=== PATIENT | female | born 1930 | race Caucasian/White ===

== ENCOUNTER 2016-09-08 07:31 | Inpatient (IN) | payer OTHER ==
[~2016-09-08] VITALS: Ht 170.2 cm; Wt 73.3 kg
[2016-09-08] VITALS (19 sets, daily range): BP systolic 150–182; BP diastolic 54–83
[~2016-09-08 07:31] MED LIST: ASPIRIN81 M2 PO; ATROVENT 0.03%30 ML BOTH NARES; CELEXA20 MG PO; CYANOCOBALAM1000 MCG PO; DIABETA5 MG PO; GLIPIZIDE10 MG PO; LASIX40 MG PO; LIPITOR40 MG PO; LIPITOR80 MG PO; LOPRESSOR25 MG PO; NITROSTAT0.4 MG SL; NORVASC5 MG PO; PREVACID15 MG PO; PRILOSEC20 MG PO; SYNTHROID125 MCG PO; TYLENOL EXTRA500 MG PO; VITAMIN B-1250 MC3 PO
[2016-09-08 08:05] LABS: EOSINOPHIL COUNT 0.6 K/uL (0-0.3); HEMATOCRIT 23.2 % (36.0-46.0); IMMATURE GRANULOCYTE (%) 0.1 % (0.0-0.7); IMMATURE GRANULOCYTE COUNT 0.1 K/uL; MCH 21.2 PG (29.0-34.0); MCHC 28.4 G/DL (30.0-36.0); MCV 74.4 FL (83-99); MEAN PLAT.VOLUME 9.2 uM^3 (9.5-12.4); MONOCYTE (%) 8.8 % (3-12); MONOCYTE COUNT 0.7 K/uL (0-0.8); NEUTROPHIL (%) 71.8 % (45-76); NEUTROPHIL COUNT 5.9 K/uL (1.8-6.4); PLATELET COUNT 403 K/uL (156-360); RBC DIS.WIDTH-CV 16.8 % (11.8-14.6); RBC DIS.WIDTH-SD 43.3 % (39-53); RED BLOOD COUNT 3.12 M/uL (3.80-5.20); WHITE BLOOD COUNT 8.2 K/uL (4.1-10.2)
[2016-09-08 08:12] LABS: POINT-OF-CARE METER ID UU13113702
[2016-09-08 08:40] LABS: ANION GAP 10 MEQ/L (2-14); CHLORIDE 108 MEQ/L (99-109); POTASSIUM 4.3 MEQ/L (3.7-5.4); SAMPLE HEMOLYSIS CHECK 0; SAMPLE ICTERIC CHECK 0; SAMPLE LIPEMIA CHECK 0; SODIUM 144 MEQ/L (136-147); TOTAL BILIRUBIN 0.2 MG/DL (0.0-1.0)
[2016-09-08 08:57] LABS: ALKALINE PHOSPHATASE 63 IU/L (3-129); GFR ESTIMATE (CALCULATED) 41 mL/min/; UREA NITROGEN (BUN) 36 mg/dL (9-23)
[2016-09-08 08:58] LABS: GLUCOSE 29 mg/dL (70-99)
[2016-09-08] MEDS ORDERED: LIPITOR40 MG PO (08:59)
[2016-09-08] MEDS ORDERED: SYNTHROID150 MCG PO (09:02)
[2016-09-08] MEDS ORDERED: VITAMIN D-3 401 EACH PO (09:03)
[2016-09-08] MEDS ORDERED: ARTIFICIAL TEAR15 M1 RIGHT EYE (09:04)
[2016-09-08 09:09] LABS: HEMATOCRIT 22.9 % (36.0-46.0); MCH 20.8 PG (29.0-34.0); MCHC 27.9 G/DL (30.0-36.0); MCV 74.6 FL (83-99); MEAN PLAT.VOLUME 8.9 uM^3 (9.5-12.4); PLATELET COUNT 390 K/uL (156-360); RBC DIS.WIDTH-CV 16.8 % (11.8-14.6); RBC DIS.WIDTH-SD 43.9 % (39-53); RED BLOOD COUNT 3.07 M/uL (3.80-5.20)
[2016-09-08] MEDS ORDERED: LIPITOR80 MG PO (09:37)
[2016-09-08 09:52] LABS: ABSOLUTE RETICULOCYTE CT. 0.02 M/uL (0.02-0.08); IMM.RETIC FRACTION 9.6 % (3-19); RETICULOCYTE COUNT 0.7 % (0.5-1.8)
[2016-09-08 10:16] LABS: POINT-OF-CARE METER ID UU13113702
[2016-09-08 10:21] LABS: IRON 11 MCG/DL (35-150)
[2016-09-08 10:40] LABS: ADD MIUA? YES; BILIRUBIN NEGATIVE; BLOOD NEGATIVE; COLOR YELLOW ((YELLOW)); GLUCOSE (STRIP) NEGATIVE; KETONES NEGATIVE; LEUKOCYTES NEGATIVE; NITRITE NEGATIVE; PH, URINE 5.5 (5-8); PROTEIN (STRIP) 100; SPECIFIC GRAVITY 1.015 (1.000-1.030); UROBILINOGEN 0.2 MG/DL (0.2-1.0)
[2016-09-08 10:52] LABS: BACTERIA 3+ /HPF; EPITHELIAL CELLS RARE /HPF; MUCUS NONE SEEN /LPF; RED BLOOD CELLS NONE SEEN /HPF (0-5); UCUL ADDED? NO; WHITE BLOOD CELLS 0-5 /HPF (0-5)
[2016-09-08 11:08] LABS: FERRITIN 6 NG/ML (10-291)
[2016-09-08 12:59] LABS: POINT-OF-CARE METER ID UU13113702
[2016-09-08 14:21] LABS: POINT-OF-CARE METER ID UU13113702
[2016-09-08 16:36] LABS: PROTHROMBIN TIME 10.3 (9.2-11.2)
[2016-09-09] VITALS: BP 157/75
[2016-09-09 00:02] LABS: POINT-OF-CARE METER ID UU13113725
[2016-09-09 01:33] LABS: POINT-OF-CARE METER ID UU13113725
[2016-09-09 02:23] LABS: HEMATOCRIT 31.2 % (36.0-46.0); MCV 77.2 FL (83-99)
[2016-09-09 03:14] VITALS: BP 159/71
[2016-09-09 06:22] LABS: POINT-OF-CARE METER ID UU13113725
[2016-09-09 06:42] LABS: PROTHROMBIN TIME 10.6 (9.2-11.2); PTT 25.2 (25-32)
[2016-09-09 06:44] LABS: HEMATOCRIT 32.5 % (36.0-46.0); MCH 23.5 PG (29.0-34.0); MCHC 30.5 G/DL (30.0-36.0); MCV 77.2 FL (83-99); PLATELET COUNT 291 K/uL (156-360); RBC DIS.WIDTH-CV 17.4 % (11.8-14.6); RBC DIS.WIDTH-SD 49.6 % (39-53); WHITE BLOOD COUNT 7.5 K/uL (4.1-10.2)
[2016-09-09 06:45] LABS: RED BLOOD COUNT 4.21 M/uL (3.80-5.20)
[2016-09-09 07:09] LABS: ANION GAP 8 MEQ/L (2-14); CHLORIDE 109 MEQ/L (99-109); GFR ESTIMATE (CALCULATED) 41 mL/min/; SAMPLE HEMOLYSIS CHECK 0; SAMPLE ICTERIC CHECK 0; SAMPLE LIPEMIA CHECK 0; SODIUM 141 MEQ/L (136-147); UREA NITROGEN (BUN) 23 mg/dL (9-23)
[2016-09-09 07:10] LABS: GLUCOSE 76 mg/dL (70-99)
[2016-09-09 07:34] LABS: POINT-OF-CARE METER ID UU13113702
[2016-09-09 08:51] VITALS: BP 195/90
[2016-09-09 09:45] VITALS: BP 180/76
[2016-09-09 17:36] LABS: POINT-OF-CARE METER ID UU13113694
[2016-09-09 19:24] VITALS: BP 162/84
[2016-09-09 23:36] VITALS: BP 149/73
[2016-09-10 03:18] VITALS: BP 155/72
[2016-09-10 06:46] LABS: HEMATOCRIT 31.5 % (36.0-46.0); MCH 24.7 PG (29.0-34.0); MCHC 31.4 G/DL (30.0-36.0); MCV 78.6 FL (83-99); MEAN PLAT.VOLUME 9.4 uM^3 (9.5-12.4); PLATELET COUNT 268 K/uL (156-360); RBC DIS.WIDTH-CV 18.2 % (11.8-14.6); RBC DIS.WIDTH-SD 52.3 % (39-53); RED BLOOD COUNT 4.01 M/uL (3.80-5.20); WHITE BLOOD COUNT 8.3 K/uL (4.1-10.2)
[2016-09-10 08:00] VITALS: BP 195/77
[2016-09-10 10:10] VITALS: BP 153/67
[2016-09-10 10:48] LABS: POINT-OF-CARE METER ID UU13113725
[2016-09-10 11:01] VITALS: BP 142/65
[2016-09-10] MEDS ORDERED: PANTOPRAZOLE SO40 MG PO (14:25)
[2016-09-10] MEDS ORDERED: METOPROLOL SUCC25 MG PO (14:25)
[2016-09-10 16:20] VITALS: BP 140/62
== END 2016-09-10 16:35 | disposition home or self-care (01) | DRG 812 ==
LOC: EME → EDBD 07:31 → 5EAST 08:21 → EDOF 08:21 → 5EAST 14:53
PROVIDERS: Emergency Medicine; Hospitalist; Internal Medicine; Specialist
PROC: 30233N1 Transfusion of Nonautologous Red Blood Cells into Peripheral Vein, Percutaneous Approach (ICD-10-PCS; 2016-09-08)
PROC: 0DJ08ZZ Inspection of Upper Intestinal Tract, Via Natural or Artificial Opening Endoscopic (ICD-10-PCS; principal; 2016-09-09)
DX: D50.0 Iron deficiency anemia secondary to blood loss (chronic) (principal); E11.649 Type 2 diabetes mellitus with hypoglycemia without coma; R19.5 Other fecal abnormalities; I25.10 Atherosclerotic heart disease of native coronary artery without angina pectoris; I10 Essential (primary) hypertension; K31.7 Polyp of stomach and duodenum; E03.9 Hypothyroidism, unspecified; E78.5 Hyperlipidemia, unspecified; K44.9 Diaphragmatic hernia without obstruction or gangrene; Z90.49 Acquired absence of other specified parts of digestive tract; Z79.82 Long term (current) use of aspirin; Z85.038 Personal history of other malignant neoplasm of large intestine; Z95.5 Presence of coronary angioplasty implant and graft; I25.2 Old myocardial infarction
CPT/HCPCS: 71010; 74176; 80048; 80053; 81003; 82607; 82728; 82746; 82948; 83540; 84466; 85014; 85018; 85025; 85027; 85045; 85610; 85730; 86850; 86870; 86900; 86901; 86905; 86920; 93005; 99281; 99284; C9113; J1815; J7030; P9016

== ENCOUNTER 2016-10-20 05:52 | Inpatient (IN) | payer OTHER ==
[~2016-10-20] VITALS: Ht 170.2 cm; Wt 72.4 kg
[~2016-10-20 05:52] MED LIST changes: +ARTIFICIAL TEAR15 M1 RIGHT EYE; +FERROUS SULFAT325 MG PO; +LO-DOSE ASPIRIN81 M2 PO; +METOPROLOL SUCC25 MG PO; +PANTOPRAZOLE SO40 MG PO; +SYNTHROID150 MCG PO; +VITAMIN D-3 401 EACH PO
[2016-10-20 06:23] LABS: POINT-OF-CARE METER ID UU14174212
[2016-10-20 06:47] VITALS: BP 166/77
[2016-10-20 10:39] LABS: POINT-OF-CARE METER ID UU13113675
[2016-10-20 14:50] VITALS: BP 144/67; BP 144/77
[2016-10-20 19:29] VITALS: BP 133/58
[2016-10-20 23:08] VITALS: BP 135/60
[2016-10-21 00:47] LABS: POINT-OF-CARE METER ID UU13113781
[2016-10-21 03:59] VITALS: BP 158/81
[2016-10-21 06:35] LABS: POINT-OF-CARE METER ID UU14174216
[2016-10-21 07:35] VITALS: BP 150/64
[2016-10-21 11:30] VITALS: BP 155/63
[2016-10-21 11:57] LABS: POINT-OF-CARE USER ID NUTSLF44
[2016-10-21 15:35] VITALS: BP 174/75
[2016-10-21 19:51] VITALS: BP 164/74
[2016-10-22 01:18] VITALS: BP 161/78
[2016-10-22 05:10] VITALS: BP 158/64
[2016-10-22 05:55] LABS: HEMATOCRIT 29.1 % (36.0-46.0); MCH 25.9 PG (29.0-34.0); MCHC 29.9 G/DL (30.0-36.0); MCV 86.6 FL (83-99); MEAN PLAT.VOLUME 10.1 uM^3 (9.5-12.4); PLATELET COUNT 240 K/uL (156-360); RBC DIS.WIDTH-CV 24.7 % (11.8-14.6); RBC DIS.WIDTH-SD 74.1 % (39-53); RED BLOOD COUNT 3.36 M/uL (3.80-5.20); WHITE BLOOD COUNT 8.4 K/uL (4.1-10.2)
[2016-10-22 06:31] LABS: ANION GAP 7 MEQ/L (2-14); CHLORIDE 105 MEQ/L (99-109); GFR ESTIMATE (CALCULATED) 35 mL/min/; GLUCOSE 59 mg/dL (70-99); POTASSIUM 4.9 MEQ/L (3.7-5.4); SAMPLE HEMOLYSIS CHECK 0; SAMPLE ICTERIC CHECK 0; SAMPLE LIPEMIA CHECK 0; SODIUM 141 MEQ/L (136-147); UREA NITROGEN (BUN) 22 mg/dL (9-23)
[2016-10-22 08:47] VITALS: BP 140/72
[2016-10-22 11:10] VITALS: BP 158/60
[2016-10-22 15:00] VITALS: BP 172/74
[2016-10-23 01:26] VITALS: BP 139/60
[2016-10-23 08:25] VITALS: BP 169/72
[2016-10-23 09:17] LABS: HEMATOCRIT 27.5 % (36.0-46.0); MCH 25.5 PG (29.0-34.0); MCHC 29.8 G/DL (30.0-36.0); MCV 85.7 FL (83-99); MEAN PLAT.VOLUME 9.2 uM^3 (9.5-12.4); PLATELET COUNT 218 K/uL (156-360); RBC DIS.WIDTH-CV 23.9 % (11.8-14.6); RBC DIS.WIDTH-SD 71.7 % (39-53); RED BLOOD COUNT 3.21 M/uL (3.80-5.20); WHITE BLOOD COUNT 6.1 K/uL (4.1-10.2)
[2016-10-23 09:29] LABS: EOSINOPHIL (%) 1.1 % (0-5); EOSINOPHIL COUNT 0.1 K/uL (0-0.3); IMMATURE GRANULOCYTE (%) 0.3 % (0.0-0.7); INSTRUMENT ABS NEUTROPHIL CT 4.8 K/uL; LYMPHOCYTE COUNT 0.7 K/uL (1.0-2.8); MONOCYTE (%) 8.2 % (3-12); MONOCYTE COUNT 0.5 K/uL (0-0.8); NEUTROPHIL (%) 78.6 % (45-76); NEUTROPHIL COUNT 4.8 K/uL (1.8-6.4)
[2016-10-23 09:42] LABS: ANION GAP 6 MEQ/L (2-14); CHLORIDE 106 MEQ/L (99-109); GFR ESTIMATE (CALCULATED) 41 mL/min/; GLUCOSE 67 mg/dL (70-99); POTASSIUM 4.8 MEQ/L (3.7-5.4); SAMPLE HEMOLYSIS CHECK 0; SAMPLE ICTERIC CHECK 0; SAMPLE LIPEMIA CHECK 0; SODIUM 140 MEQ/L (136-147); UREA NITROGEN (BUN) 21 mg/dL (9-23)
[2016-10-23 16:48] VITALS: BP 200/84
[2016-10-23 23:21] VITALS: BP 158/67
[2016-10-24] MEDS ORDERED: NORCO 5/3251 TABLET PO (07:31)
[2016-10-24 07:59] VITALS: BP 155/68
[2016-10-24 08:43] LABS: EOSINOPHIL (%) 1.8 % (0-5); EOSINOPHIL COUNT 0.1 K/uL (0-0.3); IMMATURE GRANULOCYTE (%) 0.3 % (0.0-0.7); INSTRUMENT ABS NEUTROPHIL CT 6.1 K/uL; LYMPHOCYTE COUNT 0.6 K/uL (1.0-2.8); MCH 25.4 PG (29.0-34.0); MCHC 29.7 G/DL (30.0-36.0); MCV 85.6 FL (83-99); MEAN PLAT.VOLUME 9.6 uM^3 (9.5-12.4); MONOCYTE COUNT 0.5 K/uL (0-0.8); NEUTROPHIL (%) 82.7 % (45-76); NEUTROPHIL COUNT 6.1 K/uL (1.8-6.4); PLATELET COUNT 276 K/uL (156-360); RBC DIS.WIDTH-CV 23.9 % (11.8-14.6); RED BLOOD COUNT 3.62 M/uL (3.80-5.20); WHITE BLOOD COUNT 7.3 K/uL (4.1-10.2)
[2016-10-24 12:12] VITALS: BP 172/71
== END 2016-10-24 12:50 | disposition home or self-care (01) | DRG 330 ==
LOC: 4EAST 05:52 → 2SOUTH 05:52 → 4EAST 14:59 → 5EAST 10-23 06:55
PROVIDERS: Physician Assistant Surgical; Surgery
DX: C18.4 Malignant neoplasm of transverse colon (principal); C77.2 Secondary and unspecified malignant neoplasm of intra-abdominal lymph nodes; K66.0 Peritoneal adhesions (postprocedural) (postinfection); E03.9 Hypothyroidism, unspecified; E11.9 Type 2 diabetes mellitus without complications; I10 Essential (primary) hypertension; E78.00 Pure hypercholesterolemia, unspecified; F32.9 Major depressive disorder, single episode, unspecified; Z90.49 Acquired absence of other specified parts of digestive tract; I25.2 Old myocardial infarction; Z79.82 Long term (current) use of aspirin
CPT/HCPCS: 36415; 80048; 81003; 82378; 82948; 85025; 85025 91; 85027; 86850; 86870; 86900; 86901; 86920; 88309; 94799; C9113; J0330; J1170; J1644; J2405; J2710; J3010; J7120; P9045; S0030

== ENCOUNTER 2016-10-26 01:02 | Observation (INO) | payer OTHER ==
[~2016-10-26] VITALS: Ht 170.2 cm; Wt 70.6 kg
[~2016-10-26 01:02] MED LIST changes: +NORCO 5/3251 TABLET PO
[2016-10-26 01:19] LABS: POINT-OF-CARE METER ID UU14100415
[2016-10-26 01:31] LABS: HEMATOCRIT 31.4 % (36.0-46.0); MCH 25.3 PG (29.0-34.0); MCHC 29.6 G/DL (30.0-36.0); MCV 85.3 FL (83-99); MEAN PLAT.VOLUME 9.1 uM^3 (9.5-12.4); PLATELET COUNT 297 K/uL (156-360); RBC DIS.WIDTH-CV 24.2 % (11.8-14.6); RBC DIS.WIDTH-SD 71.9 % (39-53); RED BLOOD COUNT 3.68 M/uL (3.80-5.20); WHITE BLOOD COUNT 8.3 K/uL (4.1-10.2)
[2016-10-26 01:44] LABS: CHLORIDE 110 mEq/L (99-109); POTASSIUM 4.2 mEq/L (3.7-5.4); SODIUM 144 mEq/L (136-147)
[2016-10-26 01:46] LABS: GLUCOSE 50 mg/dL (70-99)
[2016-10-26 01:47] LABS: ANION GAP 7 MEQ/L (2-14)
[2016-10-26 01:50] LABS: GFR ESTIMATE (CALCULATED) 45 mL/min/
[2016-10-26 01:51] LABS: UREA NITROGEN (BUN) 17 mg/dL (9-23)
[2016-10-26 01:52] LABS: TROP-I INTERPRETATION NEGATIVE; TROPONIN-I 0.03 ng/mL (0.0-0.30)
[2016-10-26 02:09] LABS: POINT-OF-CARE METER ID UU14100415
[2016-10-26 03:42] LABS: POINT-OF-CARE METER ID UU14100415
[2016-10-26 04:20] VITALS: BP 158/67
[2016-10-26 04:23] VITALS: BP 158/67
[2016-10-26 04:39] LABS: POINT-OF-CARE METER ID UU13113700
[2016-10-26 06:26] LABS: POINT-OF-CARE METER ID UU13113700
[2016-10-26 09:26] VITALS: BP 157/67
[2016-10-26 09:26] LABS: POINT-OF-CARE METER ID UU13113700
[2016-10-26 09:29] LABS: TROP-I INTERPRETATION NEGATIVE; TROPONIN-I 0.03 ng/mL (0.0-0.30)
[2016-10-26 11:41] VITALS: BP 178/77
[2016-10-26] MEDS ORDERED: COLACE100 MG PO ×2 (13:29→13:30)
[2016-10-26 14:29] LABS: TROP-I INTERPRETATION NEGATIVE; TROPONIN-I 0.03 ng/mL (0.0-0.30)
[2016-10-26 14:40] LABS: POINT-OF-CARE METER ID UU13113700
[2016-10-26] MEDS ORDERED: GLYBURIDE2.5 MG PO (14:48)
[2016-10-26 15:01] LABS: POINT-OF-CARE METER ID UU13113700
[2016-10-26 17:48] VITALS: BP 182/70
[2016-10-26 18:45] LABS: POINT-OF-CARE METER ID UU13113700
[2016-10-26 19:23] VITALS: BP 164/58
== END 2016-10-26 19:40 | disposition home or self-care (01) ==
LOC: EME 01:02 → EDOF 02:53 → 5WEST 02:53
PROVIDERS: Emergency Medicine; Hospitalist; Physician Assistant Medical
DX: E11.65 Type 2 diabetes mellitus with hyperglycemia (principal); R94.31 Abnormal electrocardiogram [ECG] [EKG]; I16.0 Hypertensive urgency; I10 Essential (primary) hypertension; D64.9 Anemia, unspecified; E78.5 Hyperlipidemia, unspecified; I25.10 Atherosclerotic heart disease of native coronary artery without angina pectoris; Z95.5 Presence of coronary angioplasty implant and graft; Z85.038 Personal history of other malignant neoplasm of large intestine; K21.9 Gastro-esophageal reflux disease without esophagitis; M19.90 Unspecified osteoarthritis, unspecified site; I34.0 Nonrheumatic mitral (valve) insufficiency; E03.9 Hypothyroidism, unspecified
CPT/HCPCS: 80048; 82948; 84484; 85027; 93005; 99281; 99285; G0378; J0360; J1644; J1815; J7042

== ENCOUNTER 2017-01-14 07:39 | Emergency (ER) | payer OTHER ==
[~2017-01-14] VITALS: Ht 170.2 cm; Wt 68.3 kg
[~2017-01-14 07:39] MED LIST changes: +COLACE100 MG PO; +GLYBURIDE2.5 MG PO
[2017-01-14 08:23] LABS: HEMATOCRIT 34.1 % (36.0-46.0); MCH 28.4 PG (29.0-34.0); MCHC 30.8 G/DL (30.0-36.0); MCV 92.2 FL (83-99); MEAN PLAT.VOLUME 9.2 uM^3 (9.5-12.4); PLATELET COUNT 222 K/uL (156-360); RBC DIS.WIDTH-CV 13.7 % (11.8-14.6); RBC DIS.WIDTH-SD 46.4 % (39-53); WHITE BLOOD COUNT 6.9 K/uL (4.1-10.2)
[2017-01-14 08:36] LABS: CHLORIDE 110 mEq/L (99-109); MAGNESIUM 2.2 mg/dL (1.3-2.7); POTASSIUM 5.8 mEq/L (3.7-5.4); SODIUM 142 mEq/L (136-147)
[2017-01-14 08:38] LABS: GLUCOSE 224 mg/dL (70-99)
[2017-01-14 08:39] LABS: ANION GAP 5 MEQ/L (2-14)
[2017-01-14 08:40] LABS: TOTAL BILIRUBIN 0.2 mg/dL (0.0-1.0)
[2017-01-14 08:42] LABS: ALKALINE PHOSPHATASE 99 IU/L (3-129); GFR ESTIMATE (CALCULATED) 30 mL/min/
[2017-01-14 08:43] LABS: UREA NITROGEN (BUN) 34 mg/dL (9-23)
[2017-01-14 08:44] LABS: TROP-I INTERPRETATION NEGATIVE; TROPONIN-I 0.02 ng/mL (0.0-0.30)
[2017-01-14 13:07] VITALS: BP 174/64
== END 2017-01-14 13:16 | disposition home or self-care (01) ==
LOC: EME 07:39
PROVIDERS: Physician Assistant
DX: E87.5 Hyperkalemia (principal); N28.9 Disorder of kidney and ureter, unspecified; D64.9 Anemia, unspecified; Z85.038 Personal history of other malignant neoplasm of large intestine; I25.2 Old myocardial infarction; K21.9 Gastro-esophageal reflux disease without esophagitis; I10 Essential (primary) hypertension; E78.5 Hyperlipidemia, unspecified; E11.9 Type 2 diabetes mellitus without complications; E03.9 Hypothyroidism, unspecified; Z95.5 Presence of coronary angioplasty implant and graft; Z79.82 Long term (current) use of aspirin
CPT/HCPCS: 71020; 80053; 83735; 84132 91; 84484; 85027; 93005; 99281; 99285; J7030

== ENCOUNTER 2017-04-10 13:31 | Emergency (ER) | payer OTHER ==
[~2017-04-10] VITALS: Ht 170.2 cm; Wt 65.0 kg
[2017-04-10 17:03] VITALS: BP 168/64
== END 2017-04-10 17:03 | disposition home or self-care (01) ==
LOC: EME 13:31
DX: S00.83XA Contusion of other part of head, initial encounter (principal); W01.198A Fall on same level from slipping, tripping and stumbling with subsequent striking against other object, initial encounter; Y92.007 Garden or yard of unspecified non-institutional (private) residence as the place of occurrence of the external cause; R42 Dizziness and giddiness; E03.9 Hypothyroidism, unspecified; E78.5 Hyperlipidemia, unspecified; I10 Essential (primary) hypertension; E11.9 Type 2 diabetes mellitus without complications; Z79.84 Long term (current) use of oral hypoglycemic drugs; Z95.5 Presence of coronary angioplasty implant and graft; Z79.82 Long term (current) use of aspirin; Z85.038 Personal history of other malignant neoplasm of large intestine
CPT/HCPCS: 70450; 99281; 99284

== ENCOUNTER 2017-05-27 23:13 | Inpatient (IN) | payer OTHER ==
[~2017-05-27] VITALS: Ht 170.2 cm; Wt 75.8 kg
[2017-05-27 23:42] LABS: CREATININE 2.4 mg/dL (0.6-1.3); POTASSIUM 4.2 mEq/L (3.7-5.4)
[2017-05-27 23:45] LABS: HEMATOCRIT 33.1 % (36.0-46.0); MCH 31.2 PG (29.0-34.0); MCHC 32.3 G/DL (30.0-36.0); MCV 96.5 FL (83-99); MEAN PLAT.VOLUME 9.8 uM^3 (9.5-12.4); PLATELET COUNT 238 K/uL (156-360); RBC DIS.WIDTH-CV 22.6 % (11.8-14.6); RBC DIS.WIDTH-SD 78.4 % (39-53); RED BLOOD COUNT 3.43 M/uL (3.80-5.20); WHITE BLOOD COUNT 6.3 K/uL (4.1-10.2)
[2017-05-27 23:52] LABS: EOSINOPHIL COUNT 0.1 K/uL (0-0.3); IMMATURE GRANULOCYTE (%) 0.3 % (0.0-0.7); INSTRUMENT ABS NEUTROPHIL CT 4.5 K/uL; LYMPHOCYTE COUNT 1.3 K/uL (1.0-2.8); MONOCYTE (%) 5.7 % (3-12); MONOCYTE COUNT 0.4 K/uL (0-0.8); NEUTROPHIL (%) 71.5 % (45-76); NEUTROPHIL COUNT 4.5 K/uL (1.8-6.4)
[2017-05-27 23:58] LABS: CHLORIDE 112 mEq/L (99-109); POTASSIUM 4.4 mEq/L (3.7-5.4); SODIUM 143 mEq/L (136-147)
[2017-05-28] VITALS (18 sets, daily range): BP systolic 78–199; BP diastolic 39–91
[2017-05-28] LABS: GLUCOSE 40 mg/dL (70-99)
[2017-05-28 00:01] LABS: ANION GAP 13 MEQ/L (2-14)
[2017-05-28 00:02] LABS: TOTAL BILIRUBIN 0.3 mg/dL (0.0-1.0)
[2017-05-28 00:03] LABS: ALKALINE PHOSPHATASE 96 IU/L (3-129)
[2017-05-28 00:04] LABS: GFR ESTIMATE (CALCULATED) 21 mL/min/
[2017-05-28 00:05] LABS: PTT 27.6 SEC (25-37); UREA NITROGEN (BUN) 35 mg/dL (9-23)
[2017-05-28 00:07] LABS: LIPASE 42 U/L (1.0-51.0); TROP-I INTERPRETATION NEGATIVE; TROPONIN-I 0.06 ng/mL (0.0-0.30)
[2017-05-28 00:12] LABS: POINT-OF-CARE METER ID UU13113747
[2017-05-28 00:14] LABS: BASE EXCESS -0.5 mEq/L (-3 to +3); BICARBONATE 24.2 mEq/L (22-26); CARBOXY HGB 0 % (0-5); DEVICE 840; FI02 100 %; MECHANICAL RATE 16 resp/min; METHEMOGLOBIN 0.9 % (0-1.5); MODE AC; PCO2 39 mm Hg (35-45); PEEP 5 CM/H20; PO2 498 mm Hg (80-100); SITE LR; TIDAL VOLUME 400 ML; TOTAL RESP RATE 16 resp/min
[2017-05-28 01:00] LABS: CREATINE KINASE 149 IU/L (1-294); SAMPLE HEMOLYSIS CHECK 1; SAMPLE ICTERIC CHECK 0; SAMPLE LIPEMIA CHECK 0
[2017-05-28 02:35] LABS: ADD MIUA? YES; BILIRUBIN NEGATIVE; BLOOD SMALL; COLOR COLORLESS ((YELLOW)); GLUCOSE (STRIP) 150; KETONES NEGATIVE; LEUKOCYTES NEGATIVE; NITRITE NEGATIVE; PROTEIN (STRIP) 100; SPECIFIC GRAVITY 1.008 (1.000-1.030); UROBILINOGEN 0.2 MG/DL (0.2-1.0)
[2017-05-28 02:57] LABS: BACTERIA NONE SEEN /HPF; EPITHELIAL CELLS NONE SEEN /HPF; HYALINE CASTS 0-5 /LPF; MUCUS TRACE /LPF; RED BLOOD CELLS 0-5 /HPF (0-5); UCUL ADDED? NO; WHITE BLOOD CELLS 0-5 /HPF (0-5)
[2017-05-28] MEDS ORDERED: XELODA500 MG PO (03:28)
[2017-05-28] MEDS ORDERED: LIPITOR40 MG PO (03:28)
[2017-05-28] MEDS ORDERED: CELEXA20 MG PO (03:29)
[2017-05-28] MEDS ORDERED: GLYBURIDE5 MG PO (03:30)
[2017-05-28] MEDS ORDERED: SYNTHROID150 MCG PO (03:31)
[2017-05-28 04:28] LABS: METH RESISTANT S AUREUS PCR NEGATIVE (NEGATIVE)
[2017-05-28 04:44] LABS: PROBE CHECK PASS; SPECIMEN PROCESSING CONTROL PASS
[2017-05-28 04:59] LABS: EOSINOPHIL (%) 0.5 % (0-5); HEMATOCRIT 29.9 % (36.0-46.0); IMMATURE GRANULOCYTE (%) 0.4 % (0.0-0.7); INSTRUMENT ABS NEUTROPHIL CT 4.8 K/uL; LYMPHOCYTE COUNT 0.5 K/uL (1.0-2.8); MCHC 31.8 G/DL (30.0-36.0); MCV 97.7 FL (83-99); MEAN PLAT.VOLUME 9.7 uM^3 (9.5-12.4); MONOCYTE (%) 5.2 % (3-12); MONOCYTE COUNT 0.3 K/uL (0-0.8); NEUTROPHIL (%) 85.3 % (45-76); NEUTROPHIL COUNT 4.8 K/uL (1.8-6.4); PLATELET COUNT 186 K/uL (156-360); RBC DIS.WIDTH-CV 22.5 % (11.8-14.6); RBC DIS.WIDTH-SD 78.3 % (39-53); RED BLOOD COUNT 3.06 M/uL (3.80-5.20); WHITE BLOOD COUNT 5.6 K/uL (4.1-10.2)
[2017-05-28 05:14] LABS: CHLORIDE 110 mEq/L (99-109); POTASSIUM 4.1 mEq/L (3.7-5.4); SODIUM 142 mEq/L (136-147)
[2017-05-28 05:18] LABS: ANION GAP 10 MEQ/L (2-14)
[2017-05-28 05:20] LABS: GFR ESTIMATE (CALCULATED) 24 mL/min/
[2017-05-28 05:21] LABS: UREA NITROGEN (BUN) 33 mg/dL (9-23)
[2017-05-28 05:24] LABS: GLUCOSE 140 mg/dL (70-99)
[2017-05-28] MEDS ORDERED: LOPRESSOR25 MG PO (09:33)
[2017-05-28] MEDS ORDERED: ASPIR 8181 M1 PO (09:34)
[2017-05-28] MEDS ORDERED: IRON325 M1 PO (09:35)
[2017-05-28 11:17] LABS: POINT-OF-CARE METER ID UU13113731
[2017-05-28 15:27] LABS: POINT-OF-CARE METER ID UU13113731
[2017-05-28 17:36] LABS: POINT-OF-CARE METER ID UU13113731
[2017-05-28 22:38] LABS: POINT-OF-CARE METER ID UU13113731
[2017-05-29] VITALS (12 sets, daily range): BP systolic 128–178; BP diastolic 51–86
[2017-05-29 02:31] LABS: POINT-OF-CARE METER ID UU13113803
[2017-05-29 06:20] LABS: POINT-OF-CARE METER ID UU13113803
[2017-05-29 08:53] LABS: POINT-OF-CARE METER ID UU14174217
[2017-05-29 11:06] LABS: POINT-OF-CARE METER ID UU14174217
[2017-05-29] MEDS ORDERED: METOPROLOL SUCC25 MG PO (12:14)
[2017-05-29 14:26] LABS: POINT-OF-CARE METER ID UU13113803
[2017-05-29 21:35] LABS: POINT-OF-CARE METER ID UU13113725
[2017-05-29 22:28] LABS: POINT-OF-CARE METER ID UU13113725
[2017-05-30 06:01] LABS: EOSINOPHIL (%) 3.4 % (0-5); EOSINOPHIL COUNT 0.2 K/uL (0-0.3); HEMATOCRIT 28.4 % (36.0-46.0); IMMATURE GRANULOCYTE (%) 0.3 % (0.0-0.7); INSTRUMENT ABS NEUTROPHIL CT 4.4 K/uL; MCH 30.9 PG (29.0-34.0); MCV 99.6 FL (83-99); MEAN PLAT.VOLUME 10.1 uM^3 (9.5-12.4); MONOCYTE (%) 6.9 % (3-12); MONOCYTE COUNT 0.4 K/uL (0-0.8); NEUTROPHIL (%) 72.1 % (45-76); NEUTROPHIL COUNT 4.4 K/uL (1.8-6.4); PLATELET COUNT 188 K/uL (156-360); RBC DIS.WIDTH-CV 22.9 % (11.8-14.6); RBC DIS.WIDTH-SD 80.2 % (39-53); RED BLOOD COUNT 2.85 M/uL (3.80-5.20); WHITE BLOOD COUNT 6.1 K/uL (4.1-10.2)
[2017-05-30 06:09] LABS: POINT-OF-CARE METER ID UU13113725
[2017-05-30 06:58] LABS: ANION GAP 7 MEQ/L (2-14); CHLORIDE 109 MEQ/L (99-109); GFR ESTIMATE (CALCULATED) 21 mL/min/; GLUCOSE 85 mg/dL (70-99); POTASSIUM 4.9 MEQ/L (3.7-5.4); SAMPLE HEMOLYSIS CHECK 0; SAMPLE ICTERIC CHECK 0; SAMPLE LIPEMIA CHECK 0; SODIUM 140 MEQ/L (136-147); UREA NITROGEN (BUN) 43 mg/dL (9-23)
[2017-05-30 07:24] VITALS: BP 162/71
[2017-05-30 11:40] LABS: POINT-OF-CARE METER ID UU13113774
[2017-05-30 15:32] VITALS: BP 143/65
[2017-05-30 16:32] LABS: POINT-OF-CARE METER ID UU13113774
[2017-05-30 21:46] LABS: POINT-OF-CARE METER ID UU13113725
[2017-05-30 22:05] LABS: POINT-OF-CARE METER ID UU13113774
[2017-05-31] VITALS: BP 156/70
[2017-05-31 05:43] LABS: POINT-OF-CARE METER ID UU13113774
[2017-05-31 05:46] LABS: EOSINOPHIL COUNT 0.2 K/uL (0-0.3); HEMATOCRIT 26.3 % (36.0-46.0); IMMATURE GRANULOCYTE (%) 0.8 % (0.0-0.7); INSTRUMENT ABS NEUTROPHIL CT 3.5 K/uL; LYMPHOCYTE COUNT 0.9 K/uL (1.0-2.8); MCH 30.7 PG (29.0-34.0); MCHC 31.2 G/DL (30.0-36.0); MCV 98.5 FL (83-99); MEAN PLAT.VOLUME 10.1 uM^3 (9.5-12.4); MONOCYTE (%) 9.4 % (3-12); MONOCYTE COUNT 0.5 K/uL (0-0.8); NEUTROPHIL (%) 68.1 % (45-76); NEUTROPHIL COUNT 3.5 K/uL (1.8-6.4); PLATELET COUNT 187 K/uL (156-360); RBC DIS.WIDTH-CV 22.5 % (11.8-14.6); RBC DIS.WIDTH-SD 78.4 % (39-53); RED BLOOD COUNT 2.67 M/uL (3.80-5.20); WHITE BLOOD COUNT 5.2 K/uL (4.1-10.2)
[2017-05-31 06:21] LABS: ANION GAP 7 MEQ/L (2-14); CHLORIDE 110 MEQ/L (99-109); GFR ESTIMATE (CALCULATED) 20 mL/min/; GLUCOSE 73 mg/dL (70-99); POTASSIUM 4.9 MEQ/L (3.7-5.4); SAMPLE HEMOLYSIS CHECK 0; SAMPLE ICTERIC CHECK 0; SAMPLE LIPEMIA CHECK 0; SODIUM 142 MEQ/L (136-147); UREA NITROGEN (BUN) 44 mg/dL (9-23)
[2017-05-31 08:00] VITALS: BP 163/77
[2017-05-31 08:16] LABS: Estimated Average Glucose 166 mg/dL (70-123); HEMOGLOBIN A1c (GLYCOHEMOGLOB) 7.4 % HGB (Below 5.7)
[2017-05-31 11:13] LABS: FERRITIN 25 NG/ML (10-291)
[2017-05-31 11:29] LABS: POINT-OF-CARE METER ID UU13113774
[2017-05-31 12:21] LABS: IRON 31 MCG/DL (35-150)
[2017-05-31 16:01] VITALS: BP 161/71
[2017-05-31 16:15] LABS: POINT-OF-CARE METER ID UU13113725
[2017-05-31 22:07] LABS: POINT-OF-CARE METER ID UU13113725
[2017-05-31 23:20] VITALS: BP 119/62; BP 19/62
[2017-06-01 06:01] LABS: POINT-OF-CARE METER ID UU13113774
[2017-06-01 06:14] LABS: EOSINOPHIL (%) 5.3 % (0-5); EOSINOPHIL COUNT 0.3 K/uL (0-0.3); HEMATOCRIT 26.9 % (36.0-46.0); IMMATURE GRANULOCYTE (%) 0.8 % (0.0-0.7); INSTRUMENT ABS NEUTROPHIL CT 3.3 K/uL; LYMPHOCYTE COUNT 0.7 K/uL (1.0-2.8); MCH 31.4 PG (29.0-34.0); MCHC 31.6 G/DL (30.0-36.0); MCV 99.3 FL (83-99); MEAN PLAT.VOLUME 9.7 uM^3 (9.5-12.4); MONOCYTE (%) 11.7 % (3-12); MONOCYTE COUNT 0.6 K/uL (0-0.8); NEUTROPHIL (%) 66.7 % (45-76); NEUTROPHIL COUNT 3.3 K/uL (1.8-6.4); PLATELET COUNT 189 K/uL (156-360); RBC DIS.WIDTH-CV 22.5 % (11.8-14.6); RBC DIS.WIDTH-SD 78.4 % (39-53); RED BLOOD COUNT 2.71 M/uL (3.80-5.20); WHITE BLOOD COUNT 4.9 K/uL (4.1-10.2)
[2017-06-01 06:40] VITALS: BP 176/75
[2017-06-01 06:46] LABS: ANION GAP 4 MEQ/L (2-14); CHLORIDE 107 MEQ/L (99-109); GFR ESTIMATE (CALCULATED) 24 mL/min/; GLUCOSE 77 mg/dL (70-99); POTASSIUM 5.1 MEQ/L (3.7-5.4); SAMPLE HEMOLYSIS CHECK 0; SAMPLE ICTERIC CHECK 0; SAMPLE LIPEMIA CHECK 0; SODIUM 139 MEQ/L (136-147); UREA NITROGEN (BUN) 36 mg/dL (9-23)
[2017-06-01 11:19] LABS: POINT-OF-CARE METER ID UU13113774
[2017-06-01 12:07] VITALS: BP 192/77
[2017-06-01 15:05] VITALS: BP 141/65
[2017-06-01 16:15] LABS: POINT-OF-CARE METER ID UU13113774
[2017-06-01 21:00] LABS: POINT-OF-CARE METER ID UU13113774; POINT-OF-CARE USER ID 611181321
[2017-06-01 22:13] LABS: POINT-OF-CARE METER ID UU13113774
[2017-06-02 00:02] VITALS: BP 163/71
[2017-06-02 05:43] LABS: MCV 98.9 FL (83-99)
[2017-06-02 06:25] LABS: POINT-OF-CARE METER ID UU13113774
[2017-06-02 07:50] VITALS: BP 131/60
[2017-06-02 11:24] LABS: POINT-OF-CARE METER ID UU13113774
[2017-06-02 15:06] VITALS: BP 103/54
[2017-06-02 16:35] LABS: POINT-OF-CARE METER ID UU13113774
[2017-06-02] MEDS ORDERED: METOPROLOL SUCC25 MG PO (17:00)
[2017-06-02] MEDS ORDERED: AMLODIPINE BESYL5 MG PO (17:00)
[2017-06-02] MEDS ORDERED: LEVEMIR FL100 UNIT/1 SC (17:24)
[2017-06-02] MEDS ORDERED: NOVOLOG PE100 UNITS/ SC (17:26)
[2017-06-02] MEDS ORDERED: SYNTHROID150 MCG PO (18:33)
== END 2017-06-02 18:54 | disposition home or self-care (01) | DRG 208 ==
LOC: EME → EDBD 23:13 → EME 23:13 → EDOF 05-28 00:52 → 4WEST 05-28 00:52 → 5EAST 05-28 00:52 → ENRESERV 05-28 00:56 → 4WEST 05-28 02:44 → ENRESERV 05-29 18:18 → 5EAST 05-29 20:18
PROVIDERS: Emergency Medicine; Internal Medicine; Internal Medicine Critical Care Medicine; Student in an Organized Health Care Education/Training Program; Surgery
PROC: 0BH17EZ Insertion of Endotracheal Airway into Trachea, Via Natural or Artificial Opening (ICD-10-PCS; principal; 2017-05-28)
PROC: 5A1935Z Respiratory Ventilation, Less than 24 Consecutive Hours (ICD-10-PCS; principal; 2017-05-28)
DX: J96.01 Acute respiratory failure with hypoxia (principal); G93.41 Metabolic encephalopathy; E03.5 Myxedema coma; C18.9 Malignant neoplasm of colon, unspecified; I12.9 Hypertensive chronic kidney disease with stage 1 through stage 4 chronic kidney disease, or unspecified chronic kidney disease; E11.22 Type 2 diabetes mellitus with diabetic chronic kidney disease; N18.3 Chronic kidney disease, stage 3 (moderate); I16.1 Hypertensive emergency; E11.649 Type 2 diabetes mellitus with hypoglycemia without coma; D63.1 Anemia in chronic kidney disease; I45.10 Unspecified right bundle-branch block; R29.810 Facial weakness; K31.7 Polyp of stomach and duodenum; K80.20 Calculus of gallbladder without cholecystitis without obstruction; I25.10 Atherosclerotic heart disease of native coronary artery without angina pectoris; E78.5 Hyperlipidemia, unspecified; F39 Unspecified mood [affective] disorder; H35.30 Unspecified macular degeneration; K21.9 Gastro-esophageal reflux disease without esophagitis; F32.9 Major depressive disorder, single episode, unspecified; R19.5 Other fecal abnormalities; R53.1 Weakness; L82.1 Other seborrheic keratosis; M47.816 Spondylosis without myelopathy or radiculopathy, lumbar region; H91.90 Unspecified hearing loss, unspecified ear; Z90.49 Acquired absence of other specified parts of digestive tract; Z95.5 Presence of coronary angioplasty implant and graft
CPT/HCPCS: 36600; 70450; 71010; 71020; 80047; 80048; 80053; 81003; 82272; 82550; 82607; 82728; 82746; 82803; 82948; 83036; 83540; 83605; 83690; 83880; 84439; 84443; 84466; 84484; 85014; 85018; 85025; 85610; 85730; 87040; 87070; 87205; 87641; 90686; 93005; 94002; 94799; 97530 GO; 97530 GP; 99281; 99285; J0360; J1644; J1720; J1815; J2060; J2704; J3010; J7042; J7050; S0028